=== PATIENT | female | born 1995 | race African-American/Black ===

== ENCOUNTER 2017-03-15 17:38 | Emergency (ER) | payer SELFPAY ==
[~2017-03-15] VITALS: Ht 170.2 cm; Wt 67.3 kg
[~2017-03-15 17:38] MED LIST: AUBRA PO; BENADRYL50 MG PO; PREDNISONE20 MG PO; PROAIR HFA0.09 MG/AC IH; PROVENTIL0.09 MG/A1 IH
[2017-03-15 17:41] VITALS: BP 123/73; TEMP 98.3
[2017-03-15 19:19] LABS: PH 6 (5-8); SQUAMOUS EPITHELIAL 0-2 /hpf; URINE APPEARANCE Clear; URINE BACTERIA Rare /hpf; URINE BILIRUBIN Negative (NEGATIVE); URINE BLOOD Negative (NEGATIVE); URINE COLOR Yellow; URINE GLUCOSE Negative (NEGATIVE); URINE KETONE Negative (NEGATIVE); URINE RBC 0-2 /hpf; URINE UROBILINOGEN Negative (NEGATIVE); URINE WBC 0-2 /hpf
[2017-03-15 19:23] LABS: BASO % 0.6 % (0.0-2.0); EOS # 0.2 (0.0-0.7); EOS % 5.2 % (0-4.0); GRAN # 1.9 (1.4-6.5); GRAN % 41.2 % (42.2-75.2); HEMATOCRIT 41.6 % (37.0-47.0); HEMOGLOBIN 13.6 g/dl (12.5-16.0); LYMPH # 1.9 (1.2-3.4); LYMPH % 40.9 % (20.0-51.0); MEAN CELL VOLUME 90 fl (80.0-100.0); MEAN CORPUSCULAR HEMOGLOBIN 29 pg (27.0-31.0); MEAN CORPUSCULAR HGB CONC 33 g/dl (33.0-37.0); MEAN PLATELET VOLUME 11.4 fl (7.4-10.4); MONO # 0.6 (0.1-0.6); MONO % 12.1 % (1.7-9.3); PLATELET COUNT 236 K/mm3 (130-400); RED BLOOD COUNT 4.64 M/mm3 (4.10-5.30); REDCELL DISTRIBUTION WIDTH-CV 13.3 % (11.5-14.5); WHITE BLOOD COUNT 4.6 K/mm3 (4.8-10.8)
[2017-03-15 19:36] LABS: ADJUSTED CALCIUM 9.2 mg/dL (8.4-10.2); ALANINE AMINOTRANSFERASE 19 U/L (9-52); ALBUMIN 4.7 gm/dL (3.5-5.0); ALKALINE PHOSPHATASE 96 U/L (50-136); ANION GAP 14 mmol/L (7-16); BILIRUBIN,TOTAL 0.5 mg/dL (0.0-1.0); BLOOD UREA NITROGEN 11 mg/dL (7-17); CALCIUM 9.8 mg/dL (8.4-10.2); CARBON DIOXIDE 25 mmol/L (22-30); CHLORIDE 98 mmol/L (98-107); CREATININE, serum 0.75 mg/dL (0.52-1.25); GLUCOSE 75 mg/dL (74-106); LIPASE 90 U/L (23-300); POTASSIUM 3.9 mmol/L (3.4-5.0); SODIUM 137 mmol/L (137-145); TOTAL PROTEIN 8.6 gm/dL (6.4-8.2)
[2017-03-15 19:48] LABS: TROPONIN-I < 0.012 ng/mL (0.000-0.034)
[2017-03-15 20:01] LABS: ERYTHROCYTE SEDIMENTATION RATE 8 mm/hr (0-20)
[2017-03-15] MEDS ORDERED: PRILOSEC 20MG20 MG PO (20:11)
[2017-03-15 20:19] VITALS: PULSE 45
== END 2017-03-15 20:20 | disposition home or self-care (01) ==
LOC: COL.ER 17:38
PROVIDERS: Nurse Practitioner
DX: R07.9 Chest pain, unspecified (principal); K21.9 Gastro-esophageal reflux disease without esophagitis; J45.909 Unspecified asthma, uncomplicated

== ENCOUNTER 2017-06-01 04:06 | Emergency (ER) | payer SELFPAY ==
[~2017-06-01] VITALS: Ht 170.2 cm; Wt 69.1 kg
[~2017-06-01 04:06] MED LIST changes: +PRILOSEC 20MG20 MG PO
[2017-06-01 04:10] VITALS: BP 120/66; TEMP 98.2
[2017-06-01] MEDS ORDERED: CELEXA10 MG PO (04:17)
[2017-06-01] MEDS ORDERED: ZOFRAN ODT4 MG PO (04:29)
[2017-06-01 04:43] LABS: BASO % 0.1 % (0.0-2.0); EOS # 0.2 (0.0-0.7); EOS % 2.5 % (0-4.0); GRAN # 4.7 (1.4-6.5); HEMATOCRIT 42.7 % (37.0-47.0); HEMOGLOBIN 14.1 g/dl (12.5-16.0); LYMPH % 26.9 % (20.0-51.0); MEAN CELL VOLUME 90 fl (80.0-100.0); MEAN CORPUSCULAR HEMOGLOBIN 30 pg (27.0-31.0); MEAN CORPUSCULAR HGB CONC 33 g/dl (33.0-37.0); MEAN PLATELET VOLUME 10.8 fl (7.4-10.4); MONO # 0.5 (0.1-0.6); MONO % 6.2 % (1.7-9.3); PLATELET COUNT 229 K/mm3 (130-400); RED BLOOD COUNT 4.77 M/mm3 (4.10-5.30); WHITE BLOOD COUNT 7.3 K/mm3 (4.8-10.8)
[2017-06-01 04:52] LABS: ADJUSTED CALCIUM 8.9 mg/dL (8.4-10.2); ALBUMIN 5.1 gm/dL (3.5-5.0); BILIRUBIN,TOTAL 0.4 mg/dL (0.0-1.0); CALCIUM 9.8 mg/dL (8.4-10.2); CREATININE, serum 0.86 mg/dL (0.52-1.25); POTASSIUM 3.7 mmol/L (3.4-5.0); TOTAL PROTEIN 9.1 gm/dL (6.4-8.2)
[2017-06-01 05:47] VITALS: PULSE 89
== END 2017-06-01 05:49 | disposition home or self-care (01) ==
LOC: COL.ER 04:06
PROVIDERS: Emergency Medicine
DX: R11.2 Nausea with vomiting, unspecified (principal); R19.7 Diarrhea, unspecified
CPT/HCPCS: J2405; J2550; J7030

== ENCOUNTER 2018-01-12 15:07 | Emergency (ER) | payer SELFPAY ==
[~2018-01-12] VITALS: Ht 170.2 cm; Wt 65.9 kg
[~2018-01-12 15:07] MED LIST changes: +CELEXA10 MG PO; +ZOFRAN ODT4 MG PO
[2018-01-12 15:11] VITALS: BP 106/61; TEMP 97.9
[2018-01-12 16:43] VITALS: PULSE 84
== END 2018-01-12 16:47 | disposition home or self-care (01) ==
LOC: COL.ER 15:07
DX: J02.0 Streptococcal pharyngitis (principal); F32.9 Major depressive disorder, single episode, unspecified
CPT/HCPCS: J0561

== ENCOUNTER 2018-09-19 18:31 | Emergency (ER) | payer SELFPAY ==
[~2018-09-19] VITALS: Ht 170.2 cm; Wt 70.5 kg
[2018-09-19 18:39] VITALS: BP 116/81; TEMP 98.5
[2018-09-19] MEDS ORDERED: ATIVAN 0.50.5 MG/TAB PO (20:19)
[2018-09-19 20:52] VITALS: PULSE 80
== END 2018-09-19 20:50 | disposition home or self-care (01) ==
LOC: COL.ER 18:31
DX: F41.9 Anxiety disorder, unspecified (principal); J45.909 Unspecified asthma, uncomplicated; F32.9 Major depressive disorder, single episode, unspecified

== ENCOUNTER → 2019-05-07 | Outpatient (CLI) | payer SELFPAY ==
[~2019-05-07] MED LIST changes: +ATIVAN 0.50.5 MG/TAB PO
== END ==
LOC: COL.PUL 09:50
DX: J45.20 Mild intermittent asthma, uncomplicated (principal)

== ENCOUNTER 2020-04-03 19:11 | Emergency (ER) | payer SELFPAY ==
[~2020-04-03] VITALS: Ht 170.2 cm; Wt 78.6 kg
[2020-04-03 19:26] VITALS: TEMP 97.4
[2020-04-03 20:50] VITALS: BP 131/87; PULSE 50
== END 2020-04-03 20:50 | disposition home or self-care (01) ==
LOC: COL.ER 19:11
DX: T78.40XA Allergy, unspecified, initial encounter (principal)